=== PATIENT | male | born 1980 | race Caucasian/White ===

== ENCOUNTER 2021-04-04 18:30 | Emergency (ER) | payer SELFPAY ==
[2021-04-04] MEDS ORDERED: Ketorolac Tromethamine 30 MG/ML VIAL ONE (21:28)
[2021-04-04 21:43] LABS: #Basophils 0.1 10x3/uL (0.0-0.2); #Eosinphils 0.1 10x3/uL (0.0-0.5); #Neutrophils 12.6 10x3/uL (1.5-8.4); %Basophils 0.3 % (0.0-2.0); %Eosinophils 0.6 % (0.0-6.0); %Lymphocytes 20.1 % (18.0-47.0); %Monocytes 5.7 % (0.0-10.0); %Neutrophils 72.8 % (40.0-75.0); Hemoglobin 13.4 g/dL (13.5-17.5); Mean Corpuscular HGB CONC 33.5 g/dL (32.0-36.0); Mean Corpuscular Hemoglobin 30.4 pg (27.0-33.0); Mean Corpuscular Volume 90.7 fl (81.2-95.1); Mean Platelet Volume 8.7 fl (7.4-10.4); Platelet Count 320 10x3/uL (150-450); RBC Distribution Width 12.2 % (11.5-14.5); Red Blood Cell (RBC) Count 4.41 10x6/uL (4.32-5.72); White Blood Cell (WBC) Count 17.2 10x3/uL (3.5-10.5)
[2021-04-04 21:45] LABS: Anion Gap 13 mmol/L (10-20); BUN (Urea Nitrogen) 13 mg/dL (8.9-20.6); Calc. Creatinine Clearance 0 mL/min (70-130); Carbon Dioxide 28 mmol/L (22-29); Chloride 103 mmol/L (98-107); Glucose 95 mg/dL (70-105); Potassium 3.9 mmol/L (3.5-5.1); Sodium 140 mmol/L (136-145)
[2021-04-04] MEDS ORDERED: VANCOMYCIN 1.75 GM/350 ML BAG 1.75 GM in Premix Bag 1 BAG IVPB SCH (21:45)
[2021-04-04] MEDS ORDERED: Morphine 4 MG/ML VIAL ONE (21:47)
[2021-04-04 23:19] LABS: SARS-CoV-2 NAA Rapid Test Not Detected (NotDetected)
[2021-04-05] MEDS ORDERED: Gentamicin 80 MG/100 ML BAG ONE (00:04)
[2021-04-05] MEDS ORDERED: Penicillin G Potassium 3 MILL.UNITS in Sodium Chloride 0.9% 50 ML IVPB SCH (00:30)
[2021-04-05] MEDS ORDERED: Morphine 4 MG/ML VIAL ONE (03:27)
[2021-04-05] MEDS ORDERED: Ketorolac Tromethamine 30 MG/ML VIAL ONE (04:36)
== END 2021-04-05 04:46 | disposition short-term general hospital (02) ==
LOC: CSHERS 18:30
DX: L02.511 Cutaneous abscess of right hand (principal); Z20.822 Contact with and (suspected) exposure to COVID-19
CPT/HCPCS: 80048; 85025; 87040; 87070; 87077; 87186; 87205; 96365; 96366; 96367; 96375; 96376; J1580; J1885; J2270; J2540; J3370; U0002